=== PATIENT | male | born 1950 | race Caucasian/White ===

== ENCOUNTER 2018-08-16 10:11 | Emergency (ER) | payer MEDICARE, OTHER, MEDICAID ==
[2018-08-16 10:17] VITALS: BP 149/91
[2018-08-16] MEDS ORDERED: OXYcodone/APAP 5/325MG TABLET PO ONE (10:30)
[2018-08-16] MEDS ORDERED: OXYcodone/APAP 5/325MG TABLET ONE (10:34)
[2018-08-16] MEDS ORDERED: PLEASE ENTER WEIGHT MC SCH (11:00)
--- NOTE | 2018-08-16 11:03 | NUR ---
Patient/Caregiver given discharge instructions and they have confirmed that they understand the instructions. Patient ambulatory with steady gait. Pt tolerated medication well. Instructions given for medications and follow up.
== END 2018-08-16 11:53 | disposition home or self-care (01) ==
LOC: ED 10:59
DX: K08.89 Other specified disorders of teeth and supporting structures (principal)
CPT/HCPCS: 99283

== ENCOUNTER 2019-01-25 19:58 | Emergency (ER) | payer MEDICARE, MEDICAID ==
[~2019-01-25] VITALS: Ht 172.7 cm; Wt 75.0 kg
[2019-01-25 20:02] VITALS: BP 141/81
--- NOTE | 2019-01-25 20:25 | NUR ---
SEE TRIAGE NOT. PT PLACED ON HEART MONITOR, BP CUFF, PULSE OX. PT CONTINUES TO REFUSE IV, DENIES ANY PAIN AT THIS TIME. PT ASKING FOR FOOD, INFORMED OF POC AND NEED TO WAIT UNTIL LABS COMPLETED. CALL LIGHT WITHIN REACH.
[2019-01-25 20:33] LABS: BASOPHILS # (AUTO) 0.12 x10^3/uL (0-0.1); BASOPHILS % (AUTO) 1 % (0-1); EOSINOPHILS # (AUTO) 0.05 x10^3/uL (0-0.4); EOSINOPHILS % (AUTO) 0 % (1-7); LYMPHOCYTES # (AUTO) 2.37 x10^3/uL (1-3.4); LYMPHOCYTES % (AUTO) 16 % (22-44); MD NO; MEAN CORPUSCULAR HEMOGLOBIN 30.2 pg (27.5-34.5); MEAN CORPUSCULAR HGB CONC 33.3 g/dL (33.2-36.2); MEAN CORPUSCULAR VOLUME 90.5 fL (81-97); MEAN PLATELET VOLUME 6.4 fL (7.4-10.4); MONOCYTES # (AUTO) 1.14 x10^3/uL (0.2-0.8); MONOCYTES % (AUTO) 8 % (2-9); NEUTROPHILS # (AUTO) 11.07 x10^3/uL (1.8-6.8); NEUTROPHILS % (AUTO) 75 % (42-75); PLATELET COUNT 524 x10^3/uL (130-400); RED CELL DISTRIBUTION WIDTH 15.3 % (9.4-14.8)
[2019-01-25 20:57] LABS: ALANINE AMINOTRANSFERASE 20 U/L (12-78); ALBUMIN 4.2 g/dL (3.4-5.0); ANION GAP 8 mmol/L (5-15); CHLORIDE 106 mmol/L (98-107)
[2019-01-25 21:01] LABS: ALKALINE PHOSPHATASE 89 U/L (45-117); TOTAL PROTEIN 7.7 g/dL (6.4-8.2)
--- NOTE | 2019-01-25 21:05 | NUR ---
DR GAONA DISCUSSING LAB RESULTS WITH PT AND IMPLICATIONS THERE OF, PT AGREEING TO STAY IN ROOM AT THIS TI
--- NOTE | 2019-01-25 21:05 | NUR ---
REPORT RECEIVED FROM SHOLA ROBLERO.
--- NOTE | 2019-01-25 21:08 | NUR ---
PT FOUND WALKING AROUND ER WITH DOG. PT STATES "I NEEDED TO TAKE MY DOG OUT TO THE BATHROOM". PT ADVISED THAT HOSPITAL POLICY STATES NO PETS ALLOWED. PT AT NO TIME HAS STATED DOG IS SERVICE DOG. PT ALSO DEMANDING WATER. PT ADVISED OF POC, NPO UNTIL LABS, POLICY TO PLACE DOG IN [place] WHILE AWAITING. PT STATING HE WANTS TO LEAVE. CALL FROM LAB REPORTING CRITICAL TROPONIN. PT AND ERP INFORMED OF LAB, PT ADVISED OF NEED FOR ADMISSION TO HOSPITAL. ERP WALKED PT BACK TO ROOM TO TALK WITH PT. REPORT TO PITA ROBLERO.
[2019-01-25] MEDS ORDERED: ASPIRIN 325 MG TABLET ONE (21:19)
--- NOTE | 2019-01-25 21:26 | NUR ---
PT MEDICATED PER EMAR. PT TOELRATED WELL.
--- NOTE | 2019-01-25 21:26 | NUR ---
PT LEFT WITH AMA.
[2019-01-25] MEDS ORDERED: ASPIRIN 325 MG TABLET PO ONE (21:30)
[2019-01-28] MEDS ORDERED: TICA90TA PO (10:44)
[2019-01-28] MEDS ORDERED: LISI5TAB7 PO (10:44)
[2019-01-28] MEDS ORDERED: METO25TA91 PO (10:44)
[2019-01-28] MEDS ORDERED: ASPI81TA45 PO (10:44)
[2019-01-28] MEDS ORDERED: ATOR-2 PO (10:44)
[2019-01-28] MEDS ORDERED: NITR0.4T28 SL (10:44)
== END 2019-01-25 21:28 | disposition left against medical advice (07) ==
LOC: ED 21:19
DX: I21.9 Acute myocardial infarction, unspecified (principal); R07.89 Other chest pain; F17.200 Nicotine dependence, unspecified, uncomplicated
CPT/HCPCS: 0399T; 36415; 71045; 80048; 80053; 80061; 82040; 83735; 84100; 84484; 85025; 85520; 87324; 93005; 93306; 93458; 96374; 99156; 99157; 99291; C1769; C1894; C9600; G0378; J0583; J1644; J2250; J3010; C1874; C1887; Q9967

== ENCOUNTER 2019-01-26 00:47 | Inpatient (IN) | payer MEDICARE, MEDICAID ==
[~2019-01-26] VITALS: Ht 172.7 cm; Wt 66.6 kg
[2019-01-28 06:50] VITALS: BP 118/74
== END 2019-01-28 12:10 | disposition home or self-care (01) | DRG 246 ==
LOC: ED 00:49 → EDIP 02:20 → 5SO 03:32
PROVIDERS: ADMIT Family Medicine; ATTEND Family Medicine
PROC: 027034Z Dilation of Coronary Artery, One Artery with Drug-eluting Intraluminal Device, Percutaneous Approach (ICD-10-PCS; principal; 2019-01-26)
PROC: 4A023N7 Measurement of Cardiac Sampling and Pressure, Left Heart, Percutaneous Approach (ICD-10-PCS; 2019-01-26)
PROC: B2111ZZ Fluoroscopy of Multiple Coronary Arteries using Low Osmolar Contrast (ICD-10-PCS; 2019-01-26)
PROC: B2151ZZ Fluoroscopy of Left Heart using Low Osmolar Contrast (ICD-10-PCS; 2019-01-26)
DX: I21.4 Non-ST elevation (NSTEMI) myocardial infarction (principal); J96.01 Acute respiratory failure with hypoxia; I47.2 Ventricular tachycardia; F17.200 Nicotine dependence, unspecified, uncomplicated; D72.829 Elevated white blood cell count, unspecified; E78.5 Hyperlipidemia, unspecified; E87.6 Hypokalemia; Z95.5 Presence of coronary angioplasty implant and graft; I95.9 Hypotension, unspecified
CPT/HCPCS: 0399T; 36415; 80048; 80053; 80061; 82040; 83735; 84100; 84484; 85025; 85520; 87324; 93005; 93306; 93458; 96374; 99156; 99157; C1769; C1894; C9600; G0378; J0583; J1644; J2250; J3010; C1874; C1887; Q9967

== ENCOUNTER → 2019-05-11 | Outpatient (CLI) | payer MEDICARE, MEDICAID ==
[~2019-05-11] MED LIST: ASPI81TA45 PO; ATOR-2 PO; LISI5TAB7 PO; METO25TA91 PO; NITR0.4T28 SL; TICA90TA PO
== END | disposition home or self-care (01) ==
LOC: CFH 10:09
PROVIDERS: ATTEND Internal Medicine Cardiovascular Disease
DX: I08.2 Rheumatic disorders of both aortic and tricuspid valves (principal); I25.10 Atherosclerotic heart disease of native coronary artery without angina pectoris; I25.2 Old myocardial infarction; F17.200 Nicotine dependence, unspecified, uncomplicated
CPT/HCPCS: 93306